=== PATIENT | male | born 1960 | race African-American/Black ===

== ENCOUNTER 2020-06-02 07:26 | Emergency (ER) | payer MEDICAID ==
[~2020-06-02] VITALS: Ht 175.3 cm; Wt 90.7 kg
[2020-06-02] MEDS ORDERED: predniSONE 20 MG TAB PO ONE (07:30)
[2020-06-02 07:31] VITALS: BP 194/111
[2020-06-02] MEDS ORDERED: ALBUTEROL 0.083% 2.5 MG/3 ML NEBU INH ONE ×2 (07:35→08:30)
[2020-06-02] MEDS ORDERED: IPRATROPIUM 0.02% 0.5 MG/2.5 ML NEBU INH ONE (07:35)
[2020-06-02 09:31] VITALS: BP 142/76
== END 2020-06-02 09:30 | disposition home or self-care (01) ==
LOC: MED 07:26
DX: J45.901 Unspecified asthma with (acute) exacerbation (principal); R03.0 Elevated blood-pressure reading, without diagnosis of hypertension
CPT/HCPCS: 94640; 99284; J7512; J7613; J7644

== ENCOUNTER 2020-07-09 19:22 | Emergency (ER) | payer SELFPAY ==
[~2020-07-09] VITALS: Ht 177.8 cm; Wt 90.7 kg
--- NOTE | 2020-07-09 19:28 | NUR ---
PT AMBULATED TO BED 1 WITH STEADY GAIT
--- NOTE | 2020-07-09 19:30 | NUR ---
DR. HUYNH AT BEDSIDE EVALUATING PT.
[2020-07-09 19:35] VITALS: BP 129/93
[2020-07-09] MEDS ORDERED: methylPREDNISolone SS 125 MG in WATER STERILE 2 ML IV ONE (19:35)
[2020-07-09] MEDS ORDERED: ALBUTEROL SULFATE/IPRATROPIU 3 ML SOL IH ONE (19:35)
[2020-07-09] MEDS ORDERED: methylPREDNISolone SS 125 MG/2 ML VIAL ONE (19:41)
[2020-07-09] MEDS ORDERED: WATER STERILE 10 ML MC ONE (19:41)
--- NOTE | 2020-07-09 20:00 | NUR ---
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 AUDIBLE WHEEZING OBSERVED. PT O2 SAT AT 96% RA. UNK WHAT TRIGGERES ASTHMA PER PT. PT STATES HE WOKE UP AFTER TAKING A NAP AND STARTED HAVING ASTHMA EXACERBATION. PT STATES THAT HE USES INHALER AT HOME BUT WAS UNABLE TO FIND INHALER TODAY. WHEEZING HEARD UPON AUSCULTATION. DENIES ANY PAIN DURING ASSESSMENT. PT SKIN INTACT, AND CLAMMY. CAP REFILL <3 SECONDS. PT ATTACHED TO PULSE OXIMETRY. BED LOCKED AND IN LOWEST POSITION, SIDE RAIL UP X1. WILL CONTINUE TO MONITOR. MHX: ASTHMA NKA
--- NOTE | 2020-07-09 20:03 | NUR ---
PER DASIA ENCISO TO GIVE PATIENT SOLUMEDROL VIA IM.
[2020-07-09] MEDS ORDERED: ALBUTEROL 0.083% 2.5 MG/3 ML NEBU INH ONE (20:05)
--- NOTE | 2020-07-09 20:27 | NUR ---
PT VERBALIZES RELIEF. NO AUDIBLE WHEEZING NOTED. O2 SAT AT 100% RA.
[2020-07-09 21:16] VITALS: BP 153/93
--- NOTE | 2020-07-09 21:17 | NUR ---
Patient discharged with v/s stable. Written and verbal after care instructions given and explained. Patient alert, oriented and verbalized understanding of instructions. Ambulatory with steady gait. All questions addressed prior to discharge. ID band removed. Patient advised to follow up with PMD. Rx of ALBUTEROL AND PREDNISONE given. Patient educated on indication of medication including possible reaction and side effects. Opportunity to ask questions provided and answered.
== END 2020-07-09 21:15 | disposition home or self-care (01) ==
LOC: MED 19:22
DX: J45.901 Unspecified asthma with (acute) exacerbation (principal)
CPT/HCPCS: 71045; 94640; 96374; 99283; J2930; J7613; Q0092

== ENCOUNTER 2020-09-29 11:35 | Emergency (ER) | payer MEDICAID ==
[~2020-09-29] VITALS: Ht 177.8 cm; Wt 90.7 kg
[2020-09-29 11:37] VITALS: BP 156/75
--- NOTE | 2020-09-29 11:40 | NUR ---
59 Y/O MALE C/O BUG BITE ON RIGHT KNEE X2DAYS. NO ACTIVE BLEEDING OR DISCHARGE NOTED. SWELLING AND REDNESS PRESENT, WARM TO TOUCH. PATIENT STATES PAIN 6/10 BURNING/PRESSURE LIKE INTERMITTENT WORSE WITH PALPATION. PT DENIES FEVER/CHILLS, N/V/D. PMH- ASTHMA RX: ARUN HORTON
--- NOTE | 2020-09-29 11:40 | NUR ---
Pt ambulated to ER bed 11 with a steady gait.
--- NOTE | 2020-09-29 11:43 | NUR ---
Dr. Blunt at pt bedside for evaluation.
[2020-09-29] MEDS ORDERED: ceFAZolin 1,000 MG VIAL IM ONE (11:50)
[2020-09-29 12:02] VITALS: BP 156/75
--- NOTE | 2020-09-29 12:03 | NUR ---
Patient discharged with v/s stable. Written and verbal after care instructions given and explained. Patient alert, oriented and verbalized understanding of instructions. Ambulatory with steady gait. All questions addressed prior to discharge. ID band removed. Patient advised to follow up with PMD. Rx of bactrium DS 800mg-160mg BID PO, and keflex 500mg cap QID PO. given. Patient educated on indication of medication including possible reaction and side effects. Opportunity to ask questions provided and answered.
== END 2020-09-29 12:03 | disposition home or self-care (01) ==
LOC: MED 11:35
DX: S80.211A Abrasion, right knee, initial encounter (principal); L03.115 Cellulitis of right lower limb; J45.909 Unspecified asthma, uncomplicated; Z88.6 Allergy status to analgesic agent; X58.XXXA Exposure to other specified factors, initial encounter; Y93.89 Activity, other specified; Y92.89 Other specified places as the place of occurrence of the external cause; Y99.8 Other external cause status
CPT/HCPCS: 96372; 99283; J0690

== ENCOUNTER 2021-02-26 16:53 | Inpatient (IN) | payer MEDICAID ==
[~2021-02-26] VITALS: Ht 177.8 cm; Wt 90.7 kg
[2021-02-26 17:11] VITALS: BP 146/63
--- NOTE | 2021-02-26 17:30 | NUR ---
Dr. Hazel is evaluating patient at bedside.
[2021-02-26] MEDS ORDERED: ALBUTEROL HFA MDI 90 MCG/ACTUATION 8 GM INH ONE (17:35)
--- NOTE | 2021-02-26 17:35 | NUR ---
60 y/o M coming in from home with Covid-like symptoms x 1 week. Patient states non-productive cough, subjective fever, body aches and weakness upon physical exertion. Patient denies nausea, vomiting, chest pain, abdominal pain, loss of taste/smell. Patient states he uses his Albuterol inhaler PRN, however, it has not helped his symptoms lately. Patient presents with bilateral wheezes throughout, SpO2 94% @ room air. Pt placed onto 2L via N/C SpO2 96%. Dr. Hazel is evaluating patient at bedside. Bed locked in lowest position, side rails x 1, call light in reach PMH: Asthma Meds: Albuterol Allergies: Ibuprofen NKA
--- NOTE | 2021-02-26 17:42 | NUR ---
EMT at bedside for EKG
--- NOTE | 2021-02-26 17:44 | NUR ---
Blood sample collected via IV, handed to cassandra Augustin tech at ER bedside.
--- NOTE | 2021-02-26 17:51 | NUR ---
RT at bedside for nebulizer treatment
--- NOTE | 2021-02-26 17:51 | NUR ---
Covid meli swab collected, handed to CPT Aftab at ER bedside.
--- NOTE | 2021-02-26 17:51 | NUR ---
Xray at bedside
[2021-02-26 18:02] LABS: BASOPHILS # (AUTO) 0.2 K/uL (0.00-0.22); BASOPHILS % (AUTO) 4.3 % (0.0-2.0); EOSINOPHILS % (AUTO) 0.7 % (0.0-4.0); HEMATOCRIT 38.8 % (36-52); HEMOGLOBIN 12.5 g/dL (12.0-18.0); LYMPHOCYTES # (AUTO) 0.4 K/uL (2.0-11.5); LYMPHOCYTES % (AUTO) 11.4 % (20.5-51.1); MEAN CORPUSCULAR HEMOGLOBIN 22 pg (27-31); MEAN CORPUSCULAR HGB CONC 32 g/dL (33-37); MEAN CORPUSCULAR VOLUME 68.9 fL (80-94); MONOCYTES # (AUTO) 0.5 K/uL (0.8-1.0); MONOCYTES % (AUTO) 14.3 % (1.7-9.3); NEUTROPHILS # (AUTO) 2.5 K/uL (1.8-7.7); NEUTROPHILS % (AUTO) 69.3 % (42.2-75.2); PLATELET COUNT (AUTO) 328 K/uL (140-450); RED BLOOD CELL COUNT(AUTO) 5.63 MIL/uL (4.20-6.10); RED CELL DISTRIBUTION WIDTH 15.5 % (11.6-13.7); WHITE BLOOD COUNT (AUTO) 3.6 K/uL (4.8-10.8)
--- NOTE | 2021-02-26 18:19 | NUR ---
Critical lab value: Troponin 0.071. Dr. Hazel made aware.
--- NOTE | 2021-02-26 18:31 | NUR ---
Patient presents with both eyes closed in high-fowlers position. Patient awaken by RN and asssessed; denies any pain, shortness of breath or medical complaint at this time. SpO2 100% on 2L via N/C; placed back on room air SpO2 100%. medical delivery driver remains in place. Bed locked in lowest position, side rails x1, call light in reach.
[2021-02-26 19:00] LABS: ALBUMIN 3.5 g/dL (3.4-5.0); ANION GAP 13.8 (8-16); CARBON DIOXIDE 28.9 mmol/L (21-32); CREATININE 1.5 mg/dL (0.6-1.3); POTASSIUM 4.7 mmol/L (3.5-5.1); TOTAL BILIRUBIN 0.5 mg/dL (0.0-1.0)
[2021-02-26] MEDS ORDERED: ASPIRIN 81 MG TAB.CHEW PO ONE (19:10)
--- NOTE | 2021-02-26 19:15 | NUR ---
Report and transfer of care given to GABRIELA Silva.
--- NOTE | 2021-02-26 19:35 | NUR ---
RECEIVED REPORT FROM DAYSHIFT NURSE. PT ANOx4, MAKES NEEDS KNOWN, DENIES PAIN AND SOB, SLIGHT COUGH NOTED. REVIEWED PLAN OF CARE WITH PT, RECEIVED CONSENT FOR CT ANGIO OF THE CHEST. PT VERBALIZED UNDERSTANDING. PENDING URINE SAMPLE. FLUSHED LAC 20G, PATENT AND WITHOUT SYMPTOMS. VSS. SAFETY MEASURES IN PLACE.
--- NOTE | 2021-02-26 20:07 | NUR ---
PT TRANSFERRED TO CT MARY HOLDEN
[2021-02-26] MEDS ORDERED: ASPIRIN 81 MG TAB.CHEW ONE (20:42)
[2021-02-26] MEDS ORDERED: hePARIN / DEXT 5% PREMIX 250 ML IV SCH (21:35)
[2021-02-26] MEDS ORDERED: HEPARIN PER PHARMACY MC SCH (21:35)
[2021-02-26] MEDS ORDERED: cefTRIAXone 1,000 MG VIAL ONE (22:34)
[2021-02-26 23:10] LABS: APPEARANCE,URINE CLEAR (CLEAR); BILIRUBIN,URINE NEGATIVE (NEGATIVE); BLOOD, URINE 1+ (NEGATIVE); COLOR,URINE YELLOW (YELLOW); LEUKOCYTE ESTERASE ,URINE NEGATIVE (NEGATIVE); NITRITE, URINE NEGATIVE (NEGATIVE); UGLUCOSE NEGATIVE (NEGATIVE)
--- NOTE | 2021-02-26 23:20 | NUR ---
CALLED RT TO BEDSIDE, PT COMPLAINING OF INCREASING DIFFICULTY BREATHING. PLACED ON NASAL CANNULA 4L. SP02 100%. RT AT BEDSIDE FOR ASSESSMENT.
[2021-02-26 23:23] LABS: RBC,URINE 0-5 /HPF (0-5); WBC,URINE 0-5 /HPF (0-5)
[2021-02-26 23:24] LABS: COARSE GRANULAR CASTS,URINE 0-1 /LPF (None Seen)
[2021-02-26 23:26] LABS: BARBITURATE, URINE NEGATIVE ng/ml (NEG <=200); BENZODIAZEPINE, URINE NEGATIVE ng/mL (NEG <=200); CANNABINOID, URINE NEGATIVE ng/mL (NEG <=50); COCAINE, URINE NEGATIVE ng/mL (NEG <=300); OPIATE, URINE NEGATIVE ng/mL (NEG <=2000); PHENCYCLIDINE SCREEN,URINE NEGATIVE ng/mL (NEG <=25)
--- NOTE | 2021-02-26 23:30 | NUR ---
Patient will be admitted to care of [facility]. Admited to . Will go to room. Belongings list completed. Report to . Addendum: 02/27/21 at 0255 by YULISSA CALLED REPORT TO GABRIELA BURT.
[2021-02-27] MEDS: ALBUTEROL HFA MDI 90 MCG/ACTUATION 8 GM INH PRN ×3 (00:11→19:45)
--- NOTE | 2021-02-27 00:25 | NUR ---
ADMITTED 60, MALE, ON 4L NASAL CANNULA, O2 SAT 95%-100%, NO DISTRESS, DENIES PAIN, SKIN INTACT, MRSA SWAB DONE, V/S TAKEN, INITIAL ASSESSMENT DONE, IV AT [facility], INTACT, PATENT, AMBULATORY, CONTINENT, ISOLATION OBSERVED, SAFETY MEASURES IN PLACE, ORIENTED TO ROOM AND CALL LIGHT USE, WILL CONTINUE TO MONITOR, CALL LIGHT WITHIN REACH.
--- NOTE | 2021-02-27 00:30 | NUR ---
PT HAS A $77.29 ON HIS WALLET. HE KEEPS THE WALLET TO HIMSELF.
[2021-02-27] MEDS: hePARIN / DEXT 5% PREMIX 250 ML IV SCH ×4 (01:34→20:52)
--- NOTE | 2021-02-27 02:00 | NUR ---
ASLEEP, O2 SAT 98%, RESPIRATION EVEN AND UNLABORED, CALL LIGHT WITHIN REACH.
[2021-02-27 04:00] VITALS: BP 126/73
--- NOTE | 2021-02-27 04:00 | NUR ---
V/S TAKEN, PT AMBULATES TO THE RESTROOM, PERINEAL CARE RENDERED, KEPT CLEAN AND COMFORTABLE, CALL LIGHT WITHIN REACH.
--- NOTE | 2021-02-27 07:24 | NUR ---
PT STABLE, ENDORSED TO AM SHIFT RN FOR CONTINUITY OF CARE.
--- NOTE | 2021-02-27 07:25 | NUR ---
RECEIVED REPORT FROM NIGHT NURSE FOR CONTINUITY OF CARE. PT IS RESTING IN BED. PT ON 4L NC, NO SIGNS OF DISTRESS NOTED. PT HAS LAC 20G INFUSING HEPARIN DRIP AT 1440 UNITS/H. SKIN INTACT. PT ON DROPLET PRECAUTION FOR COVID POSITIVE. SAFETY MEASURES IN PLACE, WILL CONTINUE TO MONITOR.
[2021-02-27 08:00] VITALS: BP 150/79
--- NOTE | 2021-02-27 08:06 | NUR ---
ADMINISTERED SCHEDULED MEDICATION, MEDICATION EDUCATION PROVIDED. PT VERBALIZED UNDERSTANDING. PT TOLERATED WELL. WILL CONTINUE TO MONITOR.
[2021-02-27] MEDS ORDERED: AZITHROMYCIN 250 MG TAB PO SCH (09:00)
--- NOTE | 2021-02-27 09:02 | NUR ---
RECEIVED CRITICAL LAB VALUE PTT 118.7, PER HEPARIN DRIP PROTOCOL HELD HEPARIN AND WILL RESUME AT 1200 UNITS AT 1002.
[2021-02-27] MEDS: FAMOTIDINE 20 MG TAB PO SCH (09:40)
[2021-02-27] MEDS: DEXAMETHASONE 10 MG/ML VIAL IVP SCH (09:41)
--- NOTE | 2021-02-27 09:46 | NUR ---
ADMINISTERED SCHEDULED MEDICATION, MEDICATION EDUCATION PROVIDED. PT VERBALIZED UNDERSTANDING, PT TOLERATED WELL. CALL LIGHT WITHIN REACH, WILL CONTINUE TO MONITOR.
--- NOTE | 2021-02-27 10:11 | NUR ---
ADJUSTED HEPARIN DRIP FOR PTT 118.7, HELD FOR 1 HOUR AND RESUMED AT 1200 UNITS/H. MEDICATION EDUCATION PROVIDED. PT TOLERATED WELL. PT IS STABLE, WILL CONTINUE TO MONITOR.
--- NOTE | 2021-02-27 11:13 | NUR ---
ROUNDING ON PT, PT IS ASLEEP IN BED. O2 SATS AT 99%. WILL CONTINUE TO MONITOR
[2021-02-27 12:00] VITALS: BP 124/67
[2021-02-27] MEDS ORDERED: POTASSIUM CHLORIDE 10 MEQ TABER PO PRN (12:00)
[2021-02-27] MEDS ORDERED: ACETAMINOPHEN 325 MG TAB PO PRN (12:00)
[2021-02-27] MEDS ORDERED: DOCUSATE SODIUM 100 MG GELCAP PO PRN (12:00)
[2021-02-27] MEDS ORDERED: MAG SULF 2000 MG/WATER PREMIX 50 ML IV PRN (12:00)
[2021-02-27] MEDS ORDERED: LORazepam 2 MG/ML VIAL IM/IVP PRN (12:00)
[2021-02-27] MEDS ORDERED: HYDROcodone/APAP 5/325 MG 1 TAB TAB PO PRN (12:00)
[2021-02-27] MEDS ORDERED: ONDANSETRON 4 MG/2 ML VIAL IM/IVP PRN (12:00)
[2021-02-27] MEDS ORDERED: MORPHINE SULFATE 2 MG/ML SYR IVP PRN (12:00)
[2021-02-27] MEDS ORDERED: ZOLPIDEM 5 MG TAB PO PRN (12:00)
--- NOTE | 2021-02-27 12:14 | NUR ---
PT IS UNABLE TO FOLLOW INSTRUCTIONS ON HOW TO PREFORM IS AT THIS TIME
[2021-02-27 12:41] LABS: HEMATOCRIT 37.1 % (36-52); HEMOGLOBIN 11.9 g/dL (12.0-18.0); MEAN CORPUSCULAR HEMOGLOBIN 22 pg (27-31); MEAN CORPUSCULAR HGB CONC 32 g/dL (33-37); MEAN CORPUSCULAR VOLUME 68.9 fL (80-94); PLATELET COUNT (AUTO) 305 K/uL (140-450); RED BLOOD CELL COUNT(AUTO) 5.39 MIL/uL (4.20-6.10); RED CELL DISTRIBUTION WIDTH 15.7 % (11.6-13.7)
[2021-02-27 12:55] LABS: ANION GAP 11.7 (8-16); CARBON DIOXIDE 26.6 mmol/L (21-32); CREATININE 1.1 mg/dL (0.6-1.3); POTASSIUM 4.3 mmol/L (3.5-5.1)
[2021-02-27 12:59] LABS: PROTHROMBIN TIME 10.4 secs (10.8-13.4)
[2021-02-27 13:09] LABS: MAGNESIUM 2.3 mg/dL (1.8-2.4); PHOSPHORUS 2.5 mg/dL (2.5-4.9); THYROID STIMULATING HORMONE 0.17 uIU/mL (0.34-3.74)
[2021-02-27] MEDS: NACL 0.9% 1,000 ML IV SCH (13:24)
--- NOTE | 2021-02-27 13:24 | NUR ---
ADMINISTERED SCHEDULED FLUIDS, MEDICATION EDUCATION PROVIDED. PT TOLERATED WELL, PT IS STABLE, WILL CONTINUE TO MONITOR.
[2021-02-27 14:50] LABS: EOSINOPHILS % (MANUAL) 1 % (0-4); LYMPHOCYTES % (MANUAL) 5 % (20-46); MONOCYTES % (MANUAL) 5 % (5-12)
--- NOTE | 2021-02-27 15:20 | NUR ---
PTT IS 81.3, PER HEPARIN PROTOCOL ADJUSTED HEPARIN DRIP TO NEW RATE 1040 UNITS/H. WILL CONTINUE TO MONITOR.
--- NOTE | 2021-02-27 15:57 | NUR ---
NOTIFIED DR PARISI PT IS REFUSING NOVEL CORONAVIRUS NABOR TEST. PT STATES IT IS TOO PAINFUL AND DOES NOT WANT IT. WILL CONTINUE TO MONITOR.
[2021-02-27 16:00] VITALS: BP 138/73
--- NOTE | 2021-02-27 19:10 | NUR ---
ENDORSE PT TO NIGHT NURSE FOR CONTINUITY OF CARE.
--- NOTE | 2021-02-27 19:11 | NUR ---
RECEIVED BEDSIDE ENDORSEMENT FROM AM SHIFT RN. PT IS AWAKE, ALERT ORIENTED X 4, ON 4L NC, O2 SAT WNL, IVF INFUSING, ON HEPARIN DRIP AT 1040 UNITS/HR. SAFETY MEASURES IN PLACE, PLAN OF CARE DISCUSSED, CALL LIGHT WITHIN REACH.
--- NOTE | 2021-02-27 19:30 | NUR ---
PT CALLED FOR PRN MDI TREATMENT, ORDER INDICATED 2 PUFFS OF THE MDI, PT INFORMED ME HE TAKES 3 PUFFS OF HIS INHALER AT HOME, ADMINISTERED 3 PUFFS TO PT, PT SHOWED SIDE EFFECTS AND RESPONDED WELL TO TREATMENT. WILL CONTINUE TO MONITOR.
[2021-02-27 20:00] VITALS: BP 138/73
[2021-02-27] MEDS: ZINC SULF 220 MG CAP PO SCH (20:57)
--- NOTE | 2021-02-27 21:04 | NUR ---
PT ASLEEP, AROUSABLE TO VERBAL, NO DISTRESS, DUE MEDS GIVEN ORDERED, WILL CONTINUE TO MONITOR, CALL LIGHT WITHIN REACH.
[2021-02-28] VITALS: BP 126/72
--- NOTE | 2021-02-28 | NUR ---
V/S TAKEN AND RECORDED, KEPT WARM AND COMFORTABLE, O2 SAT WNL. WILL CONTINUE TO MONITOR.
--- NOTE | 2021-02-28 02:42 | NUR ---
CHECKED PT, ASLEEP, O2 SAT 99% ON 4L NC, CALL LIGHT WITHIN REACH.
[2021-02-28 04:00] VITALS: BP 129/80
[2021-02-28] MEDS: hePARIN / DEXT 5% PREMIX 250 ML IV SCH ×3 (04:19→23:14)
[2021-02-28] MEDS: NACL 0.9% 1,000 ML IV SCH ×2 (04:30→21:31)
--- NOTE | 2021-02-28 04:34 | NUR ---
IVF FINISHED, HANGED A NEW BAG OF NS 1 L AT 60 ML/HR ORDERED, CALL LIGHT WITHIN REACH.
[2021-02-28 05:39] LABS: BASOPHILS % (AUTO) 0.3 % (0.0-2.0); HEMATOCRIT 35.1 % (36-52); HEMOGLOBIN 11.1 g/dL (12.0-18.0); LYMPHOCYTES # (AUTO) 0.5 K/uL (2.0-11.5); LYMPHOCYTES % (AUTO) 10.5 % (20.5-51.1); MEAN CORPUSCULAR HEMOGLOBIN 22 pg (27-31); MEAN CORPUSCULAR HGB CONC 32 g/dL (33-37); MEAN CORPUSCULAR VOLUME 70.1 fL (80-94); MONOCYTES # (AUTO) 0.4 K/uL (0.8-1.0); MONOCYTES % (AUTO) 8.3 % (1.7-9.3); NEUTROPHILS # (AUTO) 4.1 K/uL (1.8-7.7); NEUTROPHILS % (AUTO) 80.9 % (42.2-75.2); PLATELET COUNT (AUTO) 315 K/uL (140-450); RED BLOOD CELL COUNT(AUTO) 5.01 MIL/uL (4.20-6.10); RED CELL DISTRIBUTION WIDTH 15.8 % (11.6-13.7)
[2021-02-28 06:17] LABS: ALBUMIN 2.6 g/dL (3.4-5.0); ANION GAP 11.1 (8-16); CARBON DIOXIDE 25.3 mmol/L (21-32); CHOL/HDL RATIO 3.3 (1-4.5); CREATININE 0.9 mg/dL (0.6-1.3); MAGNESIUM 2.3 mg/dL (1.8-2.4); PHOSPHORUS 2.5 mg/dL (2.5-4.9); POTASSIUM 4.4 mmol/L (3.5-5.1); TOTAL BILIRUBIN 0.2 mg/dL (0.0-1.0)
[2021-02-28] MEDS: ALBUTEROL HFA MDI 90 MCG/ACTUATION 8 GM INH PRN ×2 (06:58→19:43)
--- NOTE | 2021-02-28 07:15 | NUR ---
PATIENT HAS BEEN SCREENED AND CATEGORIZED MODERATE NUTRITION RISK. PATIENT WILL BE SEEN WITHIN 3-5 DAYS OF ADMISSION. 03/02/21-03/04/21 PEG KRAMER MS, RDN
--- NOTE | 2021-02-28 07:20 | NUR ---
RECEIVED REPORT FROM NIGHT NURSE FOR CONTINUITY OF CARE. PT IS ASLEEP IN BED. PT ON 4L NC OXYGEN, NO SIGNS OF DISTRESS NOTED. PT HAS LAC 20G INFUSING HEPARIN AT 720 UNITS/H, RH20G INFUSING NS AT 60ML/H. SKIN INTACT. DROPLET PRECAUTION IN PLACE. SAFETY MEASURES IN PLACE, WILL CONTINUE TO MONITOR.
--- NOTE | 2021-02-28 07:20 | NUR ---
PT STABLE, NO DISTRESS, ALL NEEDS ATTENDED, KEPT COMFORTABLE, BEDSIDE ENDORSEMENT GIVEN TO AM SHIFT RN.
[2021-02-28 08:00] VITALS: BP 129/80
[2021-02-28] MEDS: VITAMIN D 400 IU TAB PO SCH (08:42)
[2021-02-28] MEDS: ASCORBIC ACID 500 MG TAB PO SCH (08:42)
[2021-02-28] MEDS: FAMOTIDINE 20 MG TAB PO SCH (08:42)
[2021-02-28] MEDS: ZINC SULF 220 MG CAP PO SCH ×2 (08:43→20:29)
[2021-02-28] MEDS: DEXAMETHASONE 10 MG/ML VIAL IVP SCH (08:44)
--- NOTE | 2021-02-28 08:52 | NUR ---
ADMINISTERED SCHEDULED MEDICATION, MEDICATION EDUCATION PROVIDED. PT VERBALIZED UNDERSTANDING. PT TOLERATED WELL. PT IS STABLE, WILL CONTINUE TO MONITOR.
--- NOTE | 2021-02-28 11:06 | NUR ---
ROUNDING ON PT. PT IS RESTING IN BED. NO SIGNS OF DISTRESS NOTED. ALL NEEDS MET. RELAY MOTORMAN IN PLACE, WILL CONTINUE TO MONITOR.
--- NOTE | 2021-02-28 11:18 | NUR ---
PT PTT 46.8, PER HEPARIN DRIP PROTOCOL, IT IS THERAPEUTIC AND NEXT PTT IS SCHEDULED FOR 1519. NO CHANGE IN HEPARIN DRIP RATE. HEPARIN DRIP RATE: 720 UNITS/HOUR.
[2021-02-28 12:00] VITALS: BP 131/72
--- NOTE | 2021-02-28 13:10 | NUR ---
ASSISTED PT TO THE BATHROOM. PT IS STABLE. HONEY LIQUEFIER IN PLACE, WILL CONTINUE TO MONITOR.
--- NOTE | 2021-02-28 15:11 | NUR ---
CHANGED THE BATTERIES ON SET PAINTER. PT IS STABLE, ALL NEEDS MET. SAFETY MEASURES IN PLACE, SET PAINTER IN PLACE, WILL CONTINUE TO MONITOR.
[2021-02-28 16:00] VITALS: BP 128/64
--- NOTE | 2021-02-28 16:47 | NUR ---
PTT 41.6 ON HEPARIN DRIP PROTOCOL. PER PROTOCOL GAVE HEPARIN BOLUS 3200 UNITS. ADJUSTED HEPARIN DRIP TO 880 UNITS/H. MEDICATION EDUCATION PROVIDED. PT VERBALIZED UNDERSTANDING. ADVERTISING VICE PRESIDENT IN PLACE, WILL CONTINUE TO MONITOR.
--- NOTE | 2021-02-28 19:10 | NUR ---
ENDORSE PT TO NIGHT NURSE FOR CONTINUITY OF CARE
--- NOTE | 2021-02-28 19:11 | NUR ---
RECEIVED REPORT FROM DAY SHIFT NURSE. PT IN BED RESTING. PT AAOX4 AND ABLE TO MAKE NEEDS KNOWN. RESPIRATIONS ARE EVEN AND UNLABORED TO O2 4LPM/NC. PT NOT IN DISTRESS. ABDOMEN IS SOFT AND NON-TENDER. SKIN IS WARM, DRY, AND INTACT. PT WITH IV ACCESS ON LEFT AC G20 AND RIGHT HAND G20 PATENT AND INTACT. PT CURRENTLY ON HEPARIN DRIP AT 880 UNITS/HR. PT DENIES ANY PAIN OR DISCOMFORT AT THIS TIME. NO REQUESTS MADE. PT KEPT COMFORTABLE, CALL LIGHT WITHIN REACH, WILL CONTINUE TO MONITOR.
[2021-02-28 20:00] VITALS: BP 129/74
--- NOTE | 2021-02-28 20:29 | NUR ---
PT IN BED, O2 IN PLACE, PT NOT IN DISTRESS. VS STABLE, SCHEDULED MEDS GIVEN. PT DENIES ANY PAIN OR DISCOMFORT NO REQUESTS MADE. CALL LIGHT WITHIN REACH. WILL CONTINUE TO MONITOR.
--- NOTE | 2021-02-28 22:30 | NUR ---
ROUNDS MADE. PT ASLEEP. NO S/SX OF DISTRESS NOTED. O2 IN PLACE. PT KEPT COMFORTABLE. WILL CONTINUE TO MONITOR.
--- NOTE | 2021-02-28 22:35 | NUR ---
PTT 60.8 HEPARIN DRIP SETTINGS UNCHANGED. NEXT BLOOD DRAW ORDERED. WILL CONTINUE TO MONITOR.
[2021-03-01] VITALS: BP 119/73
--- NOTE | 2021-03-01 00:07 | NUR ---
VS STABLE. PT NOT IN DISTRESS. O2 IN PLACE. PT DENIES ANY PAIN OR DISCOMFORT AT THIS TIME. NO REQUESTS MADE. CALL LIGHT WITHIN REACH. WILL CONTINUE TO MONITOR.
--- NOTE | 2021-03-01 02:11 | NUR ---
PT ASLEEP. VISIBLE CHEST RISE AND FALL NOTED. O2 IN PLACE. O2 SAT 99%. NO S/SX OF DISTRESS NOTED. PT KEPT COMFORTABLE. WILL CONTINUE TO MONITOR.
[2021-03-01] MEDS: hePARIN / DEXT 5% PREMIX 250 ML IV SCH ×2 (02:39→03:45)
--- NOTE | 2021-03-01 02:39 | NUR ---
NEW HEPARIN BAG HUNG. INFUSION RATE STILL AT 8.8ML/HR. WILL CONTINUE TO MONITOR.
[2021-03-01 03:57] LABS: BASOPHILS % (AUTO) 0.1 % (0.0-2.0); HEMOGLOBIN 11.3 g/dL (12.0-18.0); LYMPHOCYTES # (AUTO) 0.7 K/uL (2.0-11.5); LYMPHOCYTES % (AUTO) 7.7 % (20.5-51.1); MEAN CORPUSCULAR HEMOGLOBIN 22 pg (27-31); MEAN CORPUSCULAR HGB CONC 32 g/dL (33-37); MEAN CORPUSCULAR VOLUME 68.5 fL (80-94); MONOCYTES # (AUTO) 0.7 K/uL (0.8-1.0); MONOCYTES % (AUTO) 8.5 % (1.7-9.3); NEUTROPHILS # (AUTO) 7.4 K/uL (1.8-7.7); NEUTROPHILS % (AUTO) 83.7 % (42.2-75.2); PLATELET COUNT (AUTO) 352 K/uL (140-450); RED BLOOD CELL COUNT(AUTO) 5.11 MIL/uL (4.20-6.10); RED CELL DISTRIBUTION WIDTH 15.9 % (11.6-13.7); WHITE BLOOD COUNT (AUTO) 8.8 K/uL (4.8-10.8)
[2021-03-01 04:00] VITALS: BP 148/81
[2021-03-01 04:20] LABS: ALBUMIN 2.6 g/dL (3.4-5.0); ANION GAP 8.2 (8-16); CARBON DIOXIDE 26.5 mmol/L (21-32); CREATININE 0.9 mg/dL (0.6-1.3); MAGNESIUM 2.3 mg/dL (1.8-2.4); PHOSPHORUS 2.4 mg/dL (2.5-4.9); POTASSIUM 4.7 mmol/L (3.5-5.1); TOTAL BILIRUBIN 0.3 mg/dL (0.0-1.0)
[2021-03-01] MEDS: ALBUTEROL HFA MDI 90 MCG/ACTUATION 8 GM INH PRN (04:42)
--- NOTE | 2021-03-01 04:42 | NUR ---
PT VERBALIZED HAVING SOB, O2 SAT 98%. PRN ALBUTEROL INHALER GIVEN ORDERED. WILL CONTINUE TO MONITOR.
--- NOTE | 2021-03-01 04:52 | NUR ---
PTT 50.3 HEPARIN DRIP SETTINGS UNCHANGED. NEXT BLOOD DRAW ORDERED. WILL CONTINUE TO MONITOR. Addendum: 03/01/21 at 0456 by Ran Turner RN PTT 53.0
--- NOTE | 2021-03-01 07:25 | NUR ---
ENDORSED TO DAY SHIFT NURSE FOR CONTINUITY OF CARE
--- NOTE | 2021-03-01 07:30 | NUR ---
RECEIVED REPORT FROM CENTRAL LAB TECHNICIAN. PT IN BED, AOX4, ABLE TO MAKE NEEDS KNOWN. NO C/O PAIN, RESPIRATIONS ARE EVEN AND UNLABORED ON O2 4LPM/NC. ABDOMEN IS SOFT AND NON-TENDER. SKIN IS WARM, DRY, AND INTACT. WITH IV ACCESS ON LEFT AC G20 AND RIGHT HAND G20 PATENT AND INTACT. ON HEPARIN DRIP AT 880 UNITS/HR. CALL LIGHT WITHIN REACH, WILL CONTINUE TO MONITOR.
[2021-03-01 08:00] VITALS: BP 131/79
[2021-03-01 08:48] LABS: PROTHROMBIN TIME 10.6 secs (10.8-13.4)
[2021-03-01] MEDS: DEXAMETHASONE 10 MG/ML VIAL IVP SCH (09:06)
[2021-03-01] MEDS: VITAMIN D 400 IU TAB PO SCH (09:06)
[2021-03-01] MEDS: ZINC SULF 220 MG CAP PO SCH ×2 (09:07→21:19)
[2021-03-01] MEDS: ASCORBIC ACID 500 MG TAB PO SCH (09:07)
[2021-03-01] MEDS: FAMOTIDINE 20 MG TAB PO SCH (09:07)
--- NOTE | 2021-03-01 09:10 | NUR ---
DUE MORNING MEDS GIVEN. UPDATED WITH PLAN OF CARE. VERBALIZED UNDERSTANDING
--- NOTE | 2021-03-01 10:40 | NUR ---
SOCIAL WORK NOTE: Patient's Orientation Person Situation Place Time Information Provided By PATIENT Comments SW MET WITH PATIENT AT BEDSIDE AFTER SW WAS NOTIFIED THAT PATIENT WAS HOMELESS. PER PATIENT, HE IS NOT HOMELESS AND LIVES AT [address] [place] [address]. [employer], Realtionship and Phone Number GENESIS HERNANDEZ FRIEND [phone] Healthcare Power of Carton Liner No Does Patient Have a POLST No Identifying Problems No Social Work Triggers Is A Social Work Consult Needed No Mandate Report Filed No Explanation Of Identifying Problems PATIENT IS A 60-YEAR-OLD MALE ADMITTED FOR COVID. PATIENT HAS PMHX OF ASTHMA. PATIENT DENIED MENTAL HEALTH OR SUBSTANCE ABUSE HX. PATIENT STATED THAT HE IS EMPLOYED AT [employer] AND RESTATED THAT HE WAS NOT HOMELESS. Admitted From Home Pre-Admission Level Of Functioning Status Independent/Ambulatory Prior Resources/Services Used In Last 12 Months No Prior Resources Used Prior DME No Prior DME Used Dialysis Comments N/A Living Situation Lives With Friend/Other House Patient Had Caregiver No Home Support No Caregiver Issues Financial Issues No Known Financial Issue Referral To The Financial Counselor Needed No Factors/Needs No D/C Needs Identified Pt/Rep Participated In Discharge Plan Yes Patient/Family Agress With Discharge Plan Yes Discharge Plan Comments TENTATIVE DISCHARGE PLAN IS FOR PATIENT TO RETURN HOME. DC Plan Status Initiated
--- NOTE | 2021-03-01 11:15 | NUR ---
TITRATED O2 DOWN TO 2L. O2SAT 97-98%
[2021-03-01 12:00] VITALS: BP 135/74
--- NOTE | 2021-03-01 12:00 | NUR ---
TITRATED O2 DOWN TO 1L. O2SAT 96-98%
[2021-03-01] MEDS ORDERED: SODIUM PHOSPHATE 15 MMOLE in NACL 0.9% 250 ML IV SCH (13:00)
--- NOTE | 2021-03-01 14:00 | NUR ---
PT FOUND WITH NASAL CANNULA OFF. O2SAT 85%. PLACED NC BACK, SATURATION UP TO 95%
[2021-03-01] MEDS: NACL 0.9% 1,000 ML IV SCH ×2 (14:19→21:29)
--- NOTE | 2021-03-01 14:48 | NUR ---
DC TEST ENGINEERING TECHNICIAN: FAXED ORDER FOR OUT PATIENT FNA. FAXED TO [facility]. Addendum: 03/02/21 at 1244 by Angelita Avina RN DC PLANNIN YRS OLD MALE PATIENT WAS ADMITTED FROM HOME WITH A DX OF COVID-19 . PATIENT HAS A HX OF ASTHMA. CXR SHOWED NO ACUTE CARDIOPULMONARY DISEASE. CT CHEST NO PE. THYROID US SHOWED RIGHT MID THYROID NODULE. RAPID COVID TEST POSITIVE. STARTED WITH COVID PROTOCOL. SEEN BY PULMO CARDIO AND ID. O2 2L/NC SATING 92. DC PLAN TO GO HOME WHEN STABLE CM TO FOLLOW
[2021-03-01 16:00] VITALS: BP 148/85
--- NOTE | 2021-03-01 17:00 | NUR ---
O2SAT 98% ON 1L O2. TURNED OFF O2, WILL MONITOR IF PT IS ABLE TO TOLERATE
--- NOTE | 2021-03-01 18:48 | NUR ---
PT RESTING IN BED. ON ROOM AIR O2SAT 95% NO C/O SOB
--- NOTE | 2021-03-01 19:30 | NUR ---
RECEIVED REPORT FROM DAY GABRIELA QUICK. PT AOX4 ON ROOM AIR, O2 SAT 93%. NO S/S RESPIRATORY DISTRESS. NO C/O PAIN AT THIS TIME. IV SITE LAC 20G PATENT INTACT, INFUSING NS @60 ML/HR. R HAND 20G, INFUSING HEPARIN DRIP @ 880UNITS/HR. SAFETY MEASURES IN PLACE. CALL LIGHT WITHIN REACH. WILL CONTINUE TO MONITOR Addendum: 03/01/21 at 2131 by Delaney Jane RN IV SITE LAC INFUSING HEPARIN, R HAND INFUSING NS
[2021-03-01 20:00] VITALS: BP 143/79
--- NOTE | 2021-03-01 20:30 | NUR ---
FOUND IV SITE LAC 20G OUT, CANNULA INTACT. CLEANED PATIENT. INSERTED NEW IV SITE TO L HAND 22G PATENT INTACT, GOOD BLOOD RETURN, PLACED HEPARIN DRIP BACK ON 880 U/HR. PATIENT DENIES PAIN, DENIES DISCOMFORT. CALL LIGHT WITHIN REACH. WILL CONTINUE TO MONITOR
--- NOTE | 2021-03-01 21:33 | NUR ---
ADMINISTERED SCHEDULED MEDICATION, EDUCATION PROVIDED. PATIENT FEELS A LITTLE SOB. PLACED ON 4L NC. NO DISTRESS NOTED. O2 SAT 98%, BED IN LOW POSITION, CALL LIGHT WITHIN REACH. WILL CONTINUE TO MONITOR
--- NOTE | 2021-03-01 22:02 | NUR ---
TITRATED TO 2L NC, O2 SAT 98%. NO S/S RESPIRATORY DISTRESS. DENIES SOB. CALL LIGHT WITHIN REACH. WILL CONTINUE TO MONITOR
--- NOTE | 2021-03-01 22:54 | NUR ---
PATIENT ASLEEP IN BED, RESPIRATIONS EVEN UNLABORED. O2 SAT 98%. NO S/S ACUTE DISTRESS NOTED. BED IN LOW POSITION. CALL LIGHT WITHIN REACH. WILL CONTINUE TO MONITOR
[2021-03-02] VITALS: BP 153/86
--- NOTE | 2021-03-02 01:58 | NUR ---
PATIENT ASLEEP IN BED, RESPIRATIONS EVEN UNLABORED. O2 SAT 98%. NO S/S ACUTE DISTRESS NOTED. CALL LIGHT WITHIN REACH. WILL CONTINUE TO MONITOR
[2021-03-02 04:00] VITALS: BP 136/85
[2021-03-02 04:03] LABS: BASOPHILS % (AUTO) 0.4 % (0.0-2.0); EOSINOPHILS % (AUTO) 0.7 % (0.0-4.0); HEMATOCRIT 35.4 % (36-52); HEMOGLOBIN 11.4 g/dL (12.0-18.0); LYMPHOCYTES # (AUTO) 0.7 K/uL (2.0-11.5); LYMPHOCYTES % (AUTO) 9.5 % (20.5-51.1); MEAN CORPUSCULAR HEMOGLOBIN 22 pg (27-31); MEAN CORPUSCULAR HGB CONC 32 g/dL (33-37); MEAN CORPUSCULAR VOLUME 68.8 fL (80-94); MONOCYTES # (AUTO) 1.1 K/uL (0.8-1.0); MONOCYTES % (AUTO) 15.6 % (1.7-9.3); NEUTROPHILS # (AUTO) 5.1 K/uL (1.8-7.7); NEUTROPHILS % (AUTO) 73.8 % (42.2-75.2); PLATELET COUNT (AUTO) 406 K/uL (140-450); RED BLOOD CELL COUNT(AUTO) 5.15 MIL/uL (4.20-6.10); RED CELL DISTRIBUTION WIDTH 15.9 % (11.6-13.7); WHITE BLOOD COUNT (AUTO) 6.9 K/uL (4.8-10.8)
[2021-03-02 04:24] LABS: ALBUMIN 2.5 g/dL (3.4-5.0); ANION GAP 9.5 (8-16); CARBON DIOXIDE 27.8 mmol/L (21-32); CREATININE 0.9 mg/dL (0.6-1.3); MAGNESIUM 2.2 mg/dL (1.8-2.4); PHOSPHORUS 2.6 mg/dL (2.5-4.9); POTASSIUM 4.3 mmol/L (3.5-5.1); TOTAL BILIRUBIN 0.3 mg/dL (0.0-1.0)
[2021-03-02] MEDS: hePARIN / DEXT 5% PREMIX 250 ML IV SCH ×2 (05:23→08:33)
--- NOTE | 2021-03-02 05:23 | NUR ---
ADMINISTERED HEPARIN BOLUS AND HEPARIN DRIP PER PROTOCOL AND PER ORDERS. EDUCATION PROVIDED. NO S/S ACUTE DISTRESS NOTED. CALL LIGHT WITHIN REACH. WILL CONTINUE TO MONITOR
--- NOTE | 2021-03-02 07:10 | NUR ---
ENDORSED PATIENT TO DAY RN FOR CONTINUITY OF CARE. PATIENT IS IN STABLE CONDITION
--- NOTE | 2021-03-02 07:12 | NUR ---
RECEIVED PATIENT FROM NIGHT NURSE. PATIENT UP AND WALKING TO THE BATHROOM WITH STEADY GAIT. PATIENT ALERT AND ABLE TO MAKE NEEDS KNOWN. RESP EVEN AND UNLABORED ON 2L NC. DENIED ANY DISTRESS AT THIS TIME. LH 22G HEP DRIP, RH 20G NS 60ML/HR. PLAN OF CARE DISCUSSED, PATIENT VERBALIZED UNDERSTANDING. CALL LIGHT WITHIN REACH. WILL CONTINUE TO MONITOR.
[2021-03-02 08:00] VITALS: BP 144/77
[2021-03-02] MEDS: DEXAMETHASONE 10 MG/ML VIAL IVP SCH (08:13)
[2021-03-02] MEDS: ASCORBIC ACID 500 MG TAB PO SCH (08:14)
[2021-03-02] MEDS: FAMOTIDINE 20 MG TAB PO SCH (08:15)
[2021-03-02] MEDS: VITAMIN D 400 IU TAB PO SCH (08:15)
[2021-03-02] MEDS: ZINC SULF 220 MG CAP PO SCH (08:15)
--- NOTE | 2021-03-02 08:43 | NUR ---
PATIENT SITTING UP IN BED AWAKE AND ALERT. RESP EVEN AND UNLABORED ON ROOM AIR, O2SAT 96%. O2 NC SUPPLEMENT NEEDED PER PATIENT. ROUTINE MEDICATIONS GIVEN, TOLERATED WELL. NORCO GIVEN FOR PAIN. L/S CLEAR. NON PRODUCTIVE COUGHS NOTED. LH 22G INFUSING HEPARIN WELL. RH 20G NS 60ML/HR. SKIN WARM TO TOUCH AND INTACT. PLAN OF CARE DISCUSSED, PATIENT VERBALIZED UNDERSTANDING. CALL LIGHT WITHIN REACH. WILL CONTINUE TO MONITOR.
--- NOTE | 2021-03-02 09:58 | NUR ---
PT OFF NC ON ROOM AIR O2 SAT IS 92% NO SIGNS OF DISTRESS OR SOB AT THIS TIME
[2021-03-02] MEDS ORDERED: DEC1 PO (10:31)
[2021-03-02] MEDS ORDERED: VITC500 PO (10:31)
[2021-03-02] MEDS ORDERED: FAMO20TA13 PO (10:31)
[2021-03-02] MEDS ORDERED: VITD400 PO (10:31)
[2021-03-02] MEDS ORDERED: ZINC220C29 PO (10:31)
[2021-03-02] MEDS ORDERED: ASPI-1822 PO (10:33)
--- NOTE | 2021-03-02 11:35 | NUR ---
PATIENT IN BED AWAKE ALERT. RESP EVEN AND UNLABORED ON ROOM AIR, O2SAT 95% AT REST. PATIENT AMBULATED TO THE BATHROOM WITHOUT ANY ASSIST AND ON ROOM AIR. C/O MILD SOB BUT NO OTHER DISTRESS. O2SAT 96% UPON RESTING. PATIENT ABLE TO MAKE NEEDS KNOWN. DISCHARGE ORDER RECEIVED. PATIENT MADE AWARE. WILL MAKE ATTEMPTS TO CALL FOR FAMILY. CALL LIGHT WITHIN REACH. WILL CONTINUE TO MONITOR.
[2021-03-02] MEDS ORDERED: METF500T2 PO (11:50)
[2021-03-02 12:00] VITALS: BP 144/77
[2021-03-02 13:06] VITALS: BP 144/77
--- NOTE | 2021-03-02 13:24 | NUR ---
PATIENT MADE ANOTHER ATTEMPTS TO CALL FAMILY. NO SUCCESS. PATIENT ASKED IF HE CAN SLEEP FOR A LITTLE BIT. WILL CONTINUE TO MONITOR.
--- NOTE | 2021-03-02 15:34 | NUR ---
PATIENT DISCHARGED HOME. DISCHARGE INSTRUCTIONS PROVIDED FOR COVID ISOLATION, PATIENT VERBALIZED UNDERSTANDING. NO PNA VACC GIVEN D/T AGE. PATIENT LEFT IN STABLE CONDITION.
== END 2021-03-02 15:25 | disposition home or self-care (01) | DRG 720 ==
LOC: MED 16:53 → MTU 21:42
DX: A41.9 Sepsis, unspecified organism (principal); U07.1 COVID-19; J96.01 Acute respiratory failure with hypoxia; I21.A1 Myocardial infarction type 2; E43 Unspecified severe protein-calorie malnutrition; N17.0 Acute kidney failure with tubular necrosis; E83.39 Other disorders of phosphorus metabolism; J45.901 Unspecified asthma with (acute) exacerbation; E86.0 Dehydration; J12.82 Pneumonia due to coronavirus disease 2019; G92 Toxic encephalopathy; E87.1 Hypo-osmolality and hyponatremia; K44.9 Diaphragmatic hernia without obstruction or gangrene; E11.9 Type 2 diabetes mellitus without complications; T43.621A Poisoning by amphetamines, accidental (unintentional), initial encounter; E04.1 Nontoxic single thyroid nodule; Z88.6 Allergy status to analgesic agent; Z71.51 Drug abuse counseling and surveillance of drug abuser; Y92.89 Other specified places as the place of occurrence of the external cause; Z68.28 Body mass index [BMI] 28.0-28.9, adult
CPT/HCPCS: 36415; 71045; 71275; 76536; 80048; 80053; 80305; 81001; 82150; 83036; 83605; 83615; 83690; 83735; 83880; 84100; 84134; 84436; 84443; 84484; 85025; 85379; 85610; 85651; 85730; 86140; 87040; 87081; 87086; 93005; 93308; 94664; 99291; J0696; J1100; J1644; J3535; J7030; Q9967

== ENCOUNTER 2021-06-10 00:38 | Emergency (ER) | payer MEDICAID, SELFPAY ==
[~2021-06-10] VITALS: Ht 177.8 cm; Wt 90.7 kg
[~2021-06-10 00:38] MED LIST: ASPI-1822 PO; DEC1 PO; FAMO20TA13 PO; METF500T2 PO; VITC500 PO; VITD400 PO; ZINC220C29 PO
[2021-06-10 00:45] VITALS: BP 140/102
[2021-06-10] MEDS ORDERED: methylPREDNISolone SS 125 MG/2 ML VIAL IM ONE (00:45)
[2021-06-10] MEDS ORDERED: ALBUTEROL SULFATE/IPRATROPIU 3 ML SOL IH ONE ×2 (00:45→02:00)
--- NOTE | 2021-06-10 00:45 | NUR ---
PT AMBULATED TO BED 02
[2021-06-10] MEDS ORDERED: PRED20TA5 PO (00:48)
[2021-06-10] MEDS ORDERED: ALBU0.0912 IH (00:48)
--- NOTE | 2021-06-10 00:50 | NUR ---
PT. SEEN WHEEZING WITH ACCESSORY MUSCLES USE, PULSE OX DESAT AT 77. PT. PUT ON 2L OF OXYGEN, NOW AT 97% ON PULSE OX.
--- NOTE | 2021-06-10 00:53 | NUR ---
RT AT BEDSIDE
--- NOTE | 2021-06-10 01:10 | NUR ---
PT. IS A 60 Y/O MALE THAT CAME INTO ED WITH C/O OF ASTHMA EXACERBATION. PT. STATES "I FELT SYMPTOMS IN THE MORNING BUT I THOUGHT I WAS FINE AND TRIED TO DO THE INHALER." PT. STATES HE LATER WENT TO SLEEP AND WOKE UP GASPING FOR AIR. PT. DENIES ANY PAIN AT THIS TIME. DENIES N/V/D; SKIN IS PINK/WARM/DRY; AAOX4 WITH EVEN AND STEADY GAIT; HR EVEN AND REGULAR; PT DENIES ANY FEVER, CP, SOB, OR COUGH AT THIS TIME; VSS; PATIENT POSITIONED FOR COMFORT; HOB ELEVATED; BEDRAILS UP X2; BED DOWN. ER MD MADE AWARE OF PT STATUS. PMH: ASTHMA ALLERGIES: IBUPROFEN
--- NOTE | 2021-06-10 02:31 | NUR ---
RT AT BEDSDIE FRO SECOND BREATHING TX. PATIENT REMAIN ON MONITOR.
[2021-06-10 02:58] VITALS: BP 130/85
--- NOTE | 2021-06-10 02:58 | NUR ---
Patient discharged with v/s stable. Written and verbal after care instructions given and explained. Patient alert, oriented and verbalized understanding of instructions. Ambulatory with steady gait. All questions addressed prior to discharge. ID band removed. Patient advised to follow up with PMD. Rx of ALBUTEROL SULFATE AND PREDNISONE given. Patient educated on indication of medication including possible reaction and side effects. Opportunity to ask questions provided and answered.
== END 2021-06-11 02:58 | disposition home or self-care (01) ==
LOC: MED 00:38
DX: J45.901 Unspecified asthma with (acute) exacerbation (principal); Z88.6 Allergy status to analgesic agent; Z79.899 Other long term (current) drug therapy
CPT/HCPCS: 94640; 96372; 99291; J2930; 99285

== ENCOUNTER 2021-07-14 04:28 | Emergency (ER) | payer MEDICAID, SELFPAY ==
[~2021-07-14] VITALS: Ht 177.8 cm; Wt 90.7 kg
[~2021-07-14 04:28] MED LIST changes: +ALBU0.0912 IH; +PRED20TA5 PO
[2021-07-14 04:42] VITALS: BP 139/89
--- NOTE | 2021-07-14 05:30 | NUR ---
EPIGASTRIC PAIN, DIARRHEA X 0100 TODAY. 08/15. PT SAYS, "I THINK I ATE SOME BAD PORK." PT HAS HAD 3 EPISODES OF DIARRHEA. AND 1 VOMITING 1 EPISODE. RESP E/U. SKIN WNL. NO DISTRESS NOTED. VSS. DENIES ANY BLOOD IN STOOL OR URINE. ACTIVE BS, ROUND, SOFT. A&OX4. GCS 15. STEADY GAIT. ALLERIGES: IBUPROFEN (HIVES) PMH: ASTHMA.
[2021-07-14] MEDS ORDERED: ONDANSETRON 4 MG ODT ONE (05:33)
[2021-07-14] MEDS ORDERED: ONDANSETRON 4 MG ODT PO ONE (05:35)
[2021-07-14] MEDS ORDERED: ONDA4TAB PO (05:50)
[2021-07-14 06:03] VITALS: BP 136/72
== END 2021-07-14 06:03 | disposition home or self-care (01) ==
LOC: MED 04:28
DX: A05.9 Bacterial foodborne intoxication, unspecified (principal); J45.909 Unspecified asthma, uncomplicated; Z79.899 Other long term (current) drug therapy; Z88.6 Allergy status to analgesic agent
CPT/HCPCS: 99283; Q0162

== ENCOUNTER 2021-08-21 06:48 | Emergency (ER) | payer SELFPAY ==
[~2021-08-21] VITALS: Ht 175.3 cm; Wt 95.3 kg
[~2021-08-21 06:48] MED LIST changes: +ONDA4TAB PO
[2021-08-21 06:50] VITALS: BP 210/110
--- NOTE | 2021-08-21 06:50 | NUR ---
TO BED AMBULATORY
--- NOTE | 2021-08-21 06:55 | NUR ---
RECEIVED IN BED 7 WITH C/O ASTHMA ATTACK. AUDIBLE WHEEZES, INSPIRATORY AND EXPIRATORY NOTED, (+) ACCESSORY MUSCLE USE AND TRIPODING. PT STATES "I RAN OUT OF MY INHALER"
[2021-08-21] MEDS ORDERED: ALBUTEROL SULFATE/IPRATROPIU 3 ML SOL IH ONE ×2 (06:59→07:00)
[2021-08-21] MEDS ORDERED: ALBUTEROL 0.083% 2.5 MG/3 ML NEBU INH ONE (07:00)
[2021-08-21] MEDS ORDERED: predniSONE 20 MG TAB PO ONE (07:00)
--- NOTE | 2021-08-21 07:06 | NUR ---
RECEIVED REPORT FROM GABRIELA MCHUGH. TRANSFER OF CARE AT THIS TIME.
--- NOTE | 2021-08-21 07:10 | NUR ---
DR. RAMIREZ AT PT BEDSIDE FOR FURTHER EVALUATION.
[2021-08-21] MEDS ORDERED: PRED20TA5 PO (07:22)
[2021-08-21] MEDS ORDERED: ALBU0.0912 IH (07:22)
--- NOTE | 2021-08-21 07:45 | NUR ---
Patient discharged with v/s stable. Written and verbal after care instructions given and explained. Patient alert, oriented and verbalized understanding of instructions. Ambulatory with steady gait. All questions addressed prior to discharge. ID band removed. Patient advised to follow up with PMD. Rx of PREDNISONE AND ALBUTEROL given. Patient educated on indication of medication including possible reaction and side effects. Opportunity to ask questions provided and answered.
--- NOTE | 2021-08-27 09:26 | NUR ---
LATE ENTRY : On 08/21/21 pt received two breathing treatments ini the ED, one at 0710 and the other at 0720. One Duoneb and one Albuterol tx. Patient was having bilateral wheezing at the time of the treatments and needed two back to back for better aeration.
== END 2021-08-21 07:45 | disposition home or self-care (01) ==
LOC: MED 06:48
DX: J45.901 Unspecified asthma with (acute) exacerbation (principal); Z79.899 Other long term (current) drug therapy; Z79.51 Long term (current) use of inhaled steroids; Z79.82 Long term (current) use of aspirin; Z88.6 Allergy status to analgesic agent
CPT/HCPCS: 94640; 99283; J7512; J7613

== ENCOUNTER 2021-12-08 10:22 | Emergency (ER) | payer MEDICAID ==
[~2021-12-08] VITALS: Ht 175.3 cm; Wt 96.6 kg
[2021-12-08 10:26] VITALS: BP 183/86
[2021-12-08] MEDS ORDERED: predniSONE 20 MG TAB PO ONE (10:35)
[2021-12-08] MEDS ORDERED: ALBUTEROL 0.083% 2.5 MG/3 ML NEBU INH ONE (10:35)
[2021-12-08] MEDS ORDERED: ALBUTEROL SULFATE/IPRATROPIU 3 ML SOL IH ONE (10:35)
[2021-12-08] MEDS ORDERED: ALBU0.0912 IH (11:10)
[2021-12-08] MEDS ORDERED: PRED20TA5 PO (11:10)
[2021-12-08 11:13] VITALS: BP 183/86
--- NOTE | 2021-12-08 11:13 | NUR ---
Patient discharged with v/s stable. Written and verbal after care instructions given and explained. Patient alert, oriented and verbalized understanding of instructions with teachback. Ambulatory with steady gait. All questions addressed prior to discharge. ID band removed. Patient advised to follow up with PMD. Rx of Albuterol and prednisone given. Patient educated on indication of medication including possible reaction and side effects. Opportunity to ask questions provided and answered.
== END 2021-12-08 11:13 | disposition home or self-care (01) ==
LOC: MED 10:22
DX: J45.901 Unspecified asthma with (acute) exacerbation (principal)
CPT/HCPCS: 94640; 99283; J7613

== ENCOUNTER 2021-12-23 22:55 | Emergency (ER) | payer MEDICAID ==
[~2021-12-23] VITALS: Ht 180.3 cm; Wt 95.3 kg
--- NOTE | 2021-12-23 23:02 | NUR ---
PT TAKEN TO ER BED 10
[2021-12-23] MEDS ORDERED: methylPREDNISolone SS 125 MG in WATER STERILE 2 ML IV ONE (23:05)
[2021-12-23] MEDS ORDERED: MAG SULF 2000 MG/WATER PREMIX 50 ML IV ONE (23:05)
[2021-12-23] MEDS ORDERED: ALBUTEROL SULFATE/IPRATROPIU 3 ML SOL IH ONE (23:05)
--- NOTE | 2021-12-23 23:10 | NUR ---
61 YO M BIB SELF WITH C/C OF ASTHMA ATTACK X 1 HOUR. TRIPODING, AUDIBLE WHEEZES. PT HAS HX OF ASTHMA.
[2021-12-23] MEDS ORDERED: methylPREDNISolone SS 125 MG/2 ML VIAL ONE (23:15)
[2021-12-23] MEDS ORDERED: WATER STERILE 10 ML MC ONE (23:15)
--- NOTE | 2021-12-23 23:25 | NUR ---
WHEEZING SUBSIDED. PT IS SITTING UP IN BED IN STABLE CONDITION. ALL NEEDS MET AT THIS TIME. VSS. BED LOCKED IN LOWEST POSITION,SIDE RAILS X2 FOR SAFETY.
--- NOTE | 2021-12-24 00:04 | NUR ---
PT IS SITTING UP IN BED IN STABLE CONDITION. ALL NEEDS MET AT THIS TIME. VSS. BED LOCKED IN LOWEST POSITION,SIDE RAILS X2 FOR SAFETY.
[2021-12-24 00:24] VITALS: BP 147/77
[2021-12-24] MEDS ORDERED: ALBUTEROL SULFATE/IPRATROPIU 3 ML SOL IH ONE (00:40)
--- NOTE | 2021-12-24 00:57 | NUR ---
rt at bedside.
[2021-12-24] MEDS ORDERED: PRED20TA5 PO (01:04)
[2021-12-24] MEDS ORDERED: ALBU0.0912 IH (01:04)
--- NOTE | 2021-12-24 01:10 | NUR ---
PT CLEARED FOR DISCHARGE. DR. ESPARZA PROVIDED ALL DISCHARGE INSTRUCTIONS AND MEDICATION ADMINISTRATION. RX OF PREDNISONE AND ALBUTEROL GIVEN
== END 2021-12-24 01:10 | disposition home or self-care (01) ==
LOC: MED 22:55
DX: J45.901 Unspecified asthma with (acute) exacerbation (principal); Z79.899 Other long term (current) drug therapy
CPT/HCPCS: 94640; 96365; 96366; 96375; 99284; J2930; J3475

== ENCOUNTER 2022-01-16 21:12 | Emergency (ER) | payer MEDICAID ==
[~2022-01-16] VITALS: Ht 180.3 cm; Wt 96.6 kg
[2022-01-16 21:35] VITALS: BP 146/94
[2022-01-16 21:40] VITALS: BP 146/94
--- NOTE | 2022-01-16 21:40 | NUR ---
PT AMBULATED TO CHAIR C
--- NOTE | 2022-01-16 21:40 | NUR ---
SEE COMPLETE ASSESSMENT
[2022-01-16] MEDS ORDERED: predniSONE 20 MG TAB PO ONE (21:45)
[2022-01-16] MEDS ORDERED: ALBUTEROL SULFATE/IPRATROPIU 3 ML SOL IH ONE ×2 (21:45→21:50)
--- NOTE | 2022-01-16 21:48 | NUR ---
DR. RAMIREZ EVALUATING PT.
[2022-01-16] MEDS ORDERED: ALBUTEROL 0.083% 2.5 MG/3 ML NEBU INH ONE (21:50)
--- NOTE | 2022-01-16 21:54 | NUR ---
Respiratory Therapist at bedside for respiratory intervention.
[2022-01-16] MEDS ORDERED: PRED20TA5 PO (22:08)
[2022-01-16] MEDS ORDERED: ALBU0.0912 INH (22:09)
== END 2022-01-16 22:12 | disposition home or self-care (01) ==
LOC: MED 21:12
DX: J45.901 Unspecified asthma with (acute) exacerbation (principal); Z79.899 Other long term (current) drug therapy
CPT/HCPCS: 94640; 99284; J7512; J7613

== ENCOUNTER 2024-08-26 13:58 | Emergency (ER) | payer MEDICAID, OTHER ==
[~2024-08-26] VITALS: Ht 180.3 cm; Wt 88.6 kg
[~2024-08-26 13:58] MED LIST changes: +ALBU0.0912 INH; +METF-1139 PO; -METF500T2 PO
[2024-08-26 14:00] VITALS: BP 191/116; PULSE 92; RESP 26; TEMP 98.6; O2SAT 96
[2024-08-26] MEDS: ALBUTEROL SULFATE/IPRATROPIU 3 ML SOL IH ONE (14:19)
[2024-08-26 14:20] VITALS: PULSE 89; RESP 18; O2SAT 96; O2SAT 98
[2024-08-26 14:28] VITALS: O2SAT 98
[2024-08-26] MEDS: predniSONE 20 MG TAB PO ONE (14:33)
[2024-08-26] MEDS ORDERED: ALBU0.0912 IH (15:53)
[2024-08-26] MEDS ORDERED: PRED20TA5 PO (15:53)
[2024-08-26 16:42] VITALS: BP 142/98; PULSE 92; RESP 16; TEMP 98.6; O2SAT 100
== END 2024-08-26 16:47 | disposition home or self-care (01) ==
LOC: MED 13:58
DX: J45.901 Unspecified asthma with (acute) exacerbation (principal); Z76.0 Encounter for issue of repeat prescription; Z79.899 Other long term (current) drug therapy; Z79.82 Long term (current) use of aspirin
CPT/HCPCS: 94640; 99281; J7512